=== PATIENT | female | born 1955 | race Caucasian/White ===

== ENCOUNTER 2017-12-01 09:30 | Emergency (ER) | payer BC ==
[2017-12-01 10:07] VITALS: BP 129/74
--- NOTE | 2017-12-01 10:12 | UC ---
Complaint Female HPI - HPI Summary HPI Summary: 61 y/o female presents to the urgent care c/o urinary frequency and urgency x2 days. This morning she woke up w/ burning with urination and mild pelvic pressure. She states she hasn't had a UTI since she got the hysterectomy done many years ago. Pain w/ urination is mild 6/10. Pt has not taking anything to alleviate symptoms. Pt denies fever, flank pain, abdominal pain, lower back pain , N/V/D - History Of Current Complaint Chief Complaint: UCGU Stated Complaint: URINARY COMPLAINT Time Seen by Provider: 12/01/17 10:09 Hx Obtained From: Patient ?: No - menopausal Onset/Duration: Gradual Onset, Lasting Days - 2 days, Still Present, Worse Since - this morning Timing: Intermittent Severity Initially: Mild Severity Currently: Moderate Pain Intensity: 6 Pain Scale Used: 0-10 Numeric Character: Burning Aggravating Factor(s): Urination Alleviating Factor(s): Nothing Associated Signs And Symptoms: Positive: Negative. Negative: Fever, Back Pain, Vaginal Discharge, Genital Swelling, Genital Blisters - Risk Factors Ectopic Risk Factor: Negative Ovarian Torsion Risk Factor: Negative - Allergies/Home Medications Allergies/Adverse Reactions: Allergies Allergy/AdvReac Type Severity Reaction Status Date / Time No Known Allergies Allergy Verified 12/01/17 10:03 PMH/Surg Hx/FS Hx/Imm Hx Previously Healthy: Yes - Pt denies PMHX - Surgical History Surgical History: Yes Surgery Procedure, Year, and Place: hysterectomy. appendectomy. laproscopy - Family History Known Family History: Positive: None - Pt denies FMHX - Social History Occupation: Retired Lives: With Family Alcohol Use: Rare Substance Use Type: None Smoking Status (MU): Heavy Every Day Tobacco Smoker Type: Cigarettes Amount Used/How Often: 1 PPD Review of Systems Constitutional: Negative Skin: Negative Eyes: Negative ENT: Negative Respiratory: Negative Cardiovascular: Negative Gastrointestinal: Negative Genitourinary: Dysuria, Frequency, Urgency Motor: Negative Neurovascular: Negative Musculoskeletal: Negative Neurological: Negative Psychological: Negative Is Patient Immunocompromised?: No All Other Systems Reviewed And Are Negative: Yes Physical Exam - Summary Physical Exam Summary: VITAL SIGNS: Reviewed. GENERAL: Patient is a well developed and nourished female who is sitting comfortable in the examining table. Patient is not in any acute respiratory distress. HEAD AND FACE: No signs of trauma. No ecchymosis, hematomas or skull depressions. No sinus tenderness. EYES: PERRLA, EOMI x 2, No injected conjunctiva, clear watery eyes, no nystagmus. No photophobia. EARS: Hearing grossly intact. Ear canals and tympanic membranes are within normal limits. MOUTH: pharynx with no erythema, no exudates,no palatal petechiae. no B/L tonsillar enlargement Uvula in midline. NECK: Supple, trachea is midline, no lymphadenopathy, no JVD, no carotid bruit, no c-spine tenderness, neck with full ROM. CHEST: Symmetric, no tenderness at palpation LUNGS: Clear to auscultation bilaterally. No wheezing or crackles. CVS: Regular rate and rhythm, S1 and S2 present, no murmurs or gallops appreciated. ABDOMEN: Soft, non-tender. No signs of distention. No rebound no guarding, and no masses palpated. Bowel sounds are normal. BACK:no scoliosis or lesions, non tender to palpation, No B/L CVA tenderness EXTREMITIES: FROM in all major joints, no edema, no cyanosis or clubbing. NEURO: Alert and oriented x 3. No acute neurological deficits. Speech is normal and follows commands. SKIN: Dry and warm Triage Information Reviewed: Yes Vital Signs: Initial Vital Signs Temp 98.7 F 12/01/17 09:58 Pulse 92 12/01/17 09:58 Resp 16 12/01/17 09:58 BP 129/74 12/01/17 09:58 Pulse Ox 100 12/01/17 09:58 Complaint Female Dx - Course Course Of Treatment: 61 y/o female presents to the urgent care c/o urinary frequency and urgency x2 days. This morning she woke up w/ burning with urination and mild pelvic pressure. She states she hasn't had a UTI since she got the hysterectomy done many years ago. Pain w/ urination is mild 6/10. Pt has not taking anything to alleviate symptoms. Pt denies fever, flank pain, abdominal pain, lower back pain, N/V/D. PE: WNL, UA: 2+blood and 3+ leukoesteraces. Pt denies vaginal D/C. Pt w/ dysuria.Pt educated on UA results. Pt Rx Bactrim PO x 3 days and Pyridium 100mg PO TID x 2 days. Advised to increase fluid intake. Urine sent for culture if any abnormality Pt will be notified for further treatment. Pt advised If symptoms do not improve to return to the urgent care or f/u with PCP. Pt understood and agreed. Left the clinic ambulating. - Differential Dx/Diagnosis Differential Diagnosis/HQI/PQRI: Cervicitis, Renal Colic, Ureteral Stone, Urinary Tract Infection Provider Diagnoses: 1- UTI. 2-Dysuria Discharge - Sign-Out/Discharge Documenting (check all that apply): Discharge/Admit/Transfer - D/C home - Discharge Plan Condition: Stable Disposition: HOME Prescriptions: Phenazopyridine TAB* [Pyridium 100 mg TAB*] 100 mg PO TID #6 tab Sulfamethox/Trimethoprim DS* [Bactrim DS 800/160 TAB*] 1 tab PO BID #6 tab Patient Education Materials: Urinary Tract Infection in Women (ED) Referrals: Radha Mcmanus MD [Primary Care Provider] - 3 Days Additional Instructions: 1- Please take Bactrim PO x 3 days. Pyridium 100 mg PO TID x 2 days to alleviate urinary symptoms. Increase increase fluid intake. drink cranberry juice. 2-Urine sent for culture if any abnormality, you will be notified for further treatment. 3-If symptoms do not improve please return to the urgent care or f/u with your PCP. - Billing Disposition and Condition Condition: STABLE Disposition: HOME
--- NOTE | 2017-12-04 07:19 | UC ---
- Progress Note Progress Note: E coli ux cx 12/01/17. + Sens Bactrim ds. Call pt encourage continue Bactrim ds. F/u PCP per routine, or if sx don't resolve. Discharge - Sign-Out/Discharge Documenting (check all that apply): Post-Discharge Follow Up - Discharge Plan Condition: Stable Disposition: HOME Prescriptions: Phenazopyridine TAB* [Pyridium 100 mg TAB*] 100 mg PO TID #6 tab Sulfamethox/Trimethoprim DS* [Bactrim DS 800/160 TAB*] 1 tab PO BID #6 tab Patient Education Materials: Urinary Tract Infection in Women (ED) Referrals: Radha Mcmanus MD [Primary Care Provider] - 3 Days Additional Instructions: 1- Please take Bactrim PO x 3 days. Pyridium 100 mg PO TID x 2 days to alleviate urinary symptoms. Increase increase fluid intake. drink cranberry juice. 2-Urine sent for culture if any abnormality, you will be notified for further treatment. 3-If symptoms do not improve please return to the urgent care or f/u with your PCP. - Billing Disposition and Condition Condition: STABLE Disposition: HOME
== END 2017-12-01 11:02 | disposition home or self-care (01) ==
LOC: UCCORT 09:30
DX: N39.0 Urinary tract infection, site not specified (principal); R30.0 Dysuria; Z90.710 Acquired absence of both cervix and uterus; F17.210 Nicotine dependence, cigarettes, uncomplicated
CPT/HCPCS: 81003; 87077; 87086; 87186; 99212; G0463

== ENCOUNTER 2019-04-10 08:25 | Emergency (ER) | payer BC ==
--- OUTSIDE RECORDS SUMMARY | 2019-04-10 08:33 | XMS REPORT | Continuity of Care Document ---
:1955 External Reference #:[id number] Author Name Radha Mcmanus M.D. 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 Onset: 01/04/2011 Idiopathic urticaria Radha Mcmanus M.D. Onset: 01/04/2011 Lumbar sprain Radha Mcmanus M.D. Onset: 01/04/2011 Hyperlipidemia Radha Mcmanus M.D. Onset: 01/04/2011 Social History Type Date Description Comments Sex Unknown Tobacco Use Start: Unknown Current Cigarette Smoker 1 Pack Daily ETOH Use Occasionally consumes alcohol Tobacco Use Start: Unknown Patient is a current smoker, smokes every day Smoking Status Reviewed: 03/30/17 Patient is a current smoker, smokes every day Allergies, Adverse Reactions, Alerts Active Allergies Reaction Severity Comments Date NKDA 01/04/2011 Nka 05/17/2006 Medications Active Medications SIG Qnty Indications Ordering Provider Date Ropinirole HCL take 1 tablet 240tabs G47.62 Radha Mcmanus M.D. 08/06/2018 1mg by mouth three Tablets times a day if needed Azithromycin 2 by mouth 6tabs R59.0 Radha Mcmanus M.D. 03/30/2017 250mg today, 1 by Tablets mouth day 2 thru 5 Furosemide 1 by mouth 14tabs I87.2 Radha Mcmanus M.D. 12/28/2016 20mg Tablets every day Glucosamine Kasi 2 PO qd Radha Mcmanus M.D. 05/17/2006 Tablets Immunizations CPT Code Status Date Vaccine Lot # [id number] Given 11/25/2016 Zostavax [id number] Given 04/04/2011 Flulaval [id number] Vital Signs Date Vital Result Comment 03/19/2019 1:56pm BP Systolic 110 mmHg BP Diastolic 72 mmHg Heart Rate 89 /min Height 64 inches 5'4" Weight 161.00 lb BMI (Body Mass Index) 27.6 kg/m2 O2 % BldC Oximetry 96 % 03/30/2017 10:04am BP Systolic 120 mmHg BP Diastolic 70 mmHg Height 64 inches 5'4" Results Test Date Facility Test Result H/L Range Note General Health Panel 03/06/2019 [facility] TSH 2.50 mIU/L 0.40-4.50 1, [address] [facility] [address] [place], [place] [id number] [phone] T4,Free 1.0 ng/dL 0.8-1.8 CBC W/ Diff & PLT 03/06/2019 [facility] WBC 5.6 thous/L 3.8-10.[address] [place] [address] [phone] RBC 4.27 mill/L 3.80-5.10 Hemoglobin 13.2 g/dL 11.7-15.5 Hematocrit 39.4 % 35.0-45.0 MCV 92.3 FL 80.0-100.0 MCH 30.9 pg 27.0-33.0 MCHC 33.5 g/dL 32.0-36.0 RDW 12.7 % 11.0-15.0 Platelet Count 192 thous/L 140-400 MPV 11.5 FL 7.5-12.5 Neutrophils,Absolute 3410 cells/L 2900-0608 Bands,Absolute PENDING Metamyelocytes,Absolute PENDING Myelocytes,Absolute PENDING Promyelocytes,Absolute PENDING Lymphocytes,Absolute 1600 cells/L 850-3900 Monocytes,Absolute 480 cells/L 200-950 Eosinophils,Absolute 30 cells/L 15-500 Basophils,Absolute 50 cells/L 0-200 Blast Cells,Absolute PENDING Nucleated RBC,Absolute PENDING Total Neutrophils,% 61.3 % 40-75 Bands,% PENDING Metamyelocytes,% PENDING Myelocytes,% PENDING Promyelocytes,% PENDING Total Lymphocytes,% 28.7 % 12-47 Reactive Lymphocytes PENDING Monocytes,% 8.6 % 4-12 Eosinophils,% 0.5 % 0-4 Basophils,% 0.9 % 0-1 3 Blasts,% PENDING Nucleated RBC PENDING Comment PENDING CMP W/GFR 03/06/2019 [facility] Sodium 139 mmol/L 135-[address] [place] [address] [phone] Potassium 4.5 mmol/L 3.5-5.3 Chloride 106 mmol/L 98-110 Carbon Dioxide 28 mmol/L 20-32 4 Calcium 9.7 mg/dL 8.6-10.4 Alkaline Phosphatase 87 U/L 33-130 Ast 13 U/L 10-35 Alt 8 U/L 6-29 Bilirubin,Total 0.4 mg/dL 0.2-1.2 Glucose 84 mg/dL 65-99 5 Urea Nitrogen (BUN) 15 mg/dL 7-25 Creatinine 0.83 mg/dL 0.50-0.99 6 BUN/Creatinine Ratio 17.7 6-22 Protein,Total 7.1 g/dL 6.1-8.1 Albumin 4.6 g/dL 3.6-5.1 Globulin,Calculated 2.5 g/dL 1.9-3.7 A/G Ratio 1.8 1.0-2.5 Egfr Non-Afr. Vietnamese 75 ML/MIN/1.73M2 > Or = 60 Egfr 87 ML/MIN/1.73M2 > Or = 60 Lipid Panel 03/06/2019 [facility] Cholesterol 240 mg/dL High <199 [address] [facility] [place] [address] [phone] HDL Cholesterol 54 mg/dL >50 Cholesterol/HDL Ratio 4.4 CALC <5.0 LDL Chol,Calculated 164 mg/dL High 0-100 7 Triglycerides 108 mg/dL <150 Non-HDL Cholesterol 186 mg/dL High <130 8 1 FASTING 2 REFERENCE RANGES BELOW ARE APPLICABLE TO FEMALES FIRST TRIMESTER - 0.26 - 2.66 mIU/L SECOND TRIMESTER - 0.55 - 2.73 mIU/L THIRD TRIMESTER - 0.43 - 2.91 mIU/L 3 Relative blood cell counts (%) should be compared with absolute cell counts (cells/mcL). Relative counts may not be clinically meaningful if the absolute count of one or more cell type is decreased. Reference ranges for relative cell counts derived from: A Manual of Laboratory and Diagnostics Tests, 9th Ed, Isaura Jordan & Pompa, 2015. Pediatric Reference Intervals, 7th Ed, [employer], 2011. 4 Reference range for high altitude clients: 18-30 mmol/L 5 GLUCOSE REFERENCE RANGE BASED ON FASTING SPECIMEN. 6 The upper reference limit for Creatinine is approximately 13% higher for people identified as -Vietnamese. 7 LDL-C is now calculated using the Ismael calculation, which is a validated novel method providing better accuracy than the Friedewald equation in the estimation of LDL-C. Rigoberto GALLOWAY et al.BAL.2013;310(19):3620-5581 Desirable range <100 mg/dL for primary prevention; <70 mg/dL for patients with CHD or diabetic patients with >or= 2 CHD risk factors. 8 For patients with diabetes plus 1 major ASCVD risk factor, treating to a non-HDL-C goal of <100 mg/dL (LDL-C of <70 mg/ dL) is considered a therapeutic option. Procedures Date Code Description Status 03/27/2014 671585964 Bone Mineral Density Test Completed 01/17/2012 [id number] Colonoscopy Completed Medical Devices Description No Information Available Encounters Description No Information Available Assessments Date Code Description Provider 03/19/2019 M19.011 Primary osteoarthritis, right shoulder Radha Mcmanus M.D. 03/19/2019 E78.5 Hyperlipidemia, unspecified Radha Mcmanus M.D. 03/19/2019 G47.62 Sleep related leg cramps Radha Mcmanus M.D. Plan of Treatment 03/19/2019 - Radha Mcmanus M.D.M19.011 Primary osteoarthritis, right rqkquihnH35.5 Hyperlipidemia, unspecifiedFollow up:Followup:. (Follow up) Followup:. (Follow up)6 months with lipid fjztkecO48.62 Sleep related leg cramps Functional Status Description No Information Available Mental Status Description No Information Available Referrals Description No Information Available
--- OUTSIDE RECORDS SUMMARY | 2019-04-10 08:33 | XMS REPORT | Continuity of Care Document ---
:1955 External Reference #:[id number] Author Name Radha Mcmanus M.D. 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 [place], [place] [id number] [phone] T4,Free 1.0 ng/dL 0.8-1.8 CBC W/ Diff & PLT 03/06/2019 [facility] WBC 5.6 thous/L 3.8-10.[address] [place] [address] [phone] RBC 4.27 mill/L 3.80-5.10 Hemoglobin 13.2 g/dL 11.7-15.5 Hematocrit 39.4 % 35.0-45.0 MCV 92.3 FL 80.0-100.0 MCH 30.9 pg 27.0-33.0 MCHC 33.5 g/dL 32.0-36.0 RDW 12.7 % 11.0-15.0 Platelet Count 192 thous/L 140-400 MPV 11.5 FL 7.5-12.5 Neutrophils,Absolute 3410 cells/L 8832-6365 Bands,Absolute PENDING Metamyelocytes,Absolute PENDING Myelocytes,Absolute PENDING Promyelocytes,Absolute [...] [facility] Sodium 139 mmol/L 135-[address] [place] [address] [phone] Potassium 4.5 mmol/L 3.5-5.3 Chloride 106 mmol/L [...] 1.9-3.7 A/G Ratio 1.8 1.0-2.5 Egfr Non-Afr. Fijian 75 ML/MIN/1.73M2 > Or = 60 Egfr 87 ML/MIN/1.73M2 > Or = 60 Lipid Panel 03/06/2019 [facility] Cholesterol 240 mg/dL High <199 [address] [facility] [place] [address] [phone] HDL Cholesterol 54 mg/dL >50 Cholesterol/HDL Ratio [...] Pompa, 2015. Pediatric Reference Intervals, 7th Ed, [facility] Press, 2011. 4 Reference range for high altitude clients: 18-30 mmol/L 5 GLUCOSE REFERENCE RANGE BASED ON FASTING SPECIMEN. 6 The upper reference limit for Creatinine is approximately 13% higher for people identified as -Fijian. 7 LDL-C is now calculated using the Rigoberto-Jeannie calculation, which is a validated novel method providing better accuracy than the Friedewald equation in the estimation of LDL-C. Rigoberto GALLOWAY et al.BAL.2013;310(19):5516-9392 Desirable range <100 mg/dL for primary prevention; <70 mg/dL for patients with CHD or diabetic patients with >or= 2 CHD risk factors. 8 For patients with diabetes plus 1 major ASCVD risk factor, treating to a non-HDL-C goal of <100 mg/dL (LDL-C of <70 mg/ dL) is considered a therapeutic option. Procedures Date Code Description Status 03/27/2014 [id number] Bone Mineral Density Test Completed 01/17/2012 [id number] Colonoscopy Completed Medical Devices Description No Information Available Encounters Description No Information Available Assessments Description No Information Available Plan of Treatment No Information Available Functional Status Description No Information Available Mental Status Description No Information Available Referrals Description No Information Available
[2019-04-10 08:36] VITALS: BP 118/70
--- NOTE | 2019-04-10 08:58 | ED ---
GI/ HPI - HPI Summary HPI Summary: 63 yr old female with the complaint of dysuria, frequency of urination, hesitancy. Onset three days, and progressive worse. no NVD. No fever, No back pain. She feels like she has a UTI. - History of Current Complaint Chief Complaint: UCGU Time Seen by Provider: 04/10/19 08:32 Stated Complaint: URINARY Pain Intensity: 9 - Allergy/Home Medications Allergies/Adverse Reactions: Allergies Allergy/AdvReac Type Severity Reaction Status Date / Time No Known Allergies Allergy Verified 04/10/19 08:37 PMH/Surg Hx/FS Hx/Imm Hx - Surgical History Surgery Procedure, Year, and Place: hysterectomy. appendectomy. laproscopy Infectious Disease History: No Infectious Disease History: Denies: Traveled Outside the [place] in Last 30 Days - Family History Known Family History: Positive: None - Pt denies FMHX - Social History Occupation: Employed Full-time Alcohol Use: Rare Substance Use Type: Reports: None Smoking Status (MU): Heavy Every Day Tobacco Smoker Type: Cigarettes Amount Used/How Often: 1 PPD Review of Systems Constitutional: Negative Positive: dysuria, frequency All Other Systems Reviewed And Are Negative: Yes Physical Exam Triage Information Reviewed: Yes Vital Signs On Initial Exam: Initial Vitals Temp Pulse Resp BP Pulse Ox 98.6 F 104 16 118/70 98 04/10/19 08:33 04/10/19 08:33 04/10/19 08:33 04/10/19 08:33 04/10/19 08:33 Vital Signs Reviewed: Yes Appearance: Positive: Well-Appearing, No Pain Distress Skin: Positive: Warm, Skin Color Reflects Adequate Perfusion Head/Face: Positive: Normal Head/Face Inspection Eyes: Positive: EOMI Neck: Positive: Nontender Respiratory/Lung Sounds: Positive: Clear to Auscultation, Breath Sounds Present Cardiovascular: Positive: RRR. Negative: Murmur Abdomen Description: Negative: CVA Tenderness (R), CVA Tenderness (L) Musculoskeletal: Positive: Strength/ROM Intact Neurological: Positive: Sensory/Motor Intact, Alert, Oriented to Person Place, Time, CN Intact II-III, Normal Gait, Speech Normal Psychiatric: Positive: Normal Diagnostics - Vital Signs Vital Signs Temp Pulse Resp BP Pulse Ox 04/10/19 08:33 98.6 F 104 16 118/70 98 - Laboratory Lab Results: Lab Results 04/10/19 Range/Units 08:43 POC Urine Color Yellow POC Urine Clarity Cloudy POC Urine pH 6.5 (5-9) POC Ur Specif [place] 1.015 (1.010-1.030) POC Urine Protein 2+ A (Negative) POC Ur Glucose (UA) Negative (Negative) POC Urine Ketones Negative (Negative) POC Urine Blood 3+ A (Negative) POC Urine Nitrite Negative (Negative) POC Urine Bilirubin Negative (Negative) POC Urine Urobilinogen 0.2 (Negative) POC U Leukocyte Esteras 3+ A (Negative) Lab Statement: Any lab studies that have been ordered have been reviewed, and results considered in the medical decision making process. GIGU Course/Dx - Course Course Of Treatment: 63 yr old with UTI. Rx Bactrim DS. - Diagnoses Provider Diagnoses: UTI (urinary tract infection) Discharge ED - Sign-Out/Discharge Documenting (check all that apply): Patient Departure All imaging exams completed and their final reports reviewed: No Studies - Discharge Plan Condition: Good Disposition: HOME Prescriptions: Sulfamethox/Trimethoprim DS* [Bactrim DS 800/160 TAB*] 1 tab PO BID #14 tab Patient Education Materials: Urinary Tract Infection in Women (ED) Referrals: Radha Mcmanus MD [Primary Care Provider] - 3 Days - Billing Disposition and Condition Condition: GOOD Disposition: Home
== END 2019-04-10 09:02 | disposition home or self-care (01) ==
LOC: UCCORT 08:25
DX: N39.0 Urinary tract infection, site not specified (principal); F17.210 Nicotine dependence, cigarettes, uncomplicated
CPT/HCPCS: 81003; 87077; 87086; 87186; 99212; G0463

== ENCOUNTER 2019-07-06 08:24 | Emergency (ER) | payer BC ==
--- OUTSIDE RECORDS SUMMARY | 2019-07-06 08:32 | XMS REPORT | Continuity of Care Document ---
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 Problems Description No Information Available Social History Type Date Description Comments Sex Unknown Tobacco Use Start: Unknown Heavy tobacco smoker (more than 10 cigarettes/day) ETOH Use Occasionally consumes alcohol Tobacco Use Start: Unknown Heavy tobacco smoker (more than 10 cigarettes/day) Smoking Status Reviewed: 06/11/19 Heavy tobacco smoker (more than 10 cigarettes/day) Exercise Type/Frequency Negative For Does not exercise Allergies, Adverse Reactions, Alerts Description No Known Drug Allergies Medications Active Medications SIG Qnty Indications Ordering Provider Date Amoxicillin/Clavulana take one tablet 20tabs J01.90 Mart 06/11/2019 te Potassium by mouth two MD Hema 875-125mg times a day x 10 Tablets days Ropinirole HCL take 2 tablet by 30tabs David Randolph, 04/19/2018 1mg mouth at bedtime Tablets Glucosamine 1 po qday Unknown 500mg Capsules Tylenol 2 tabs by mouth Unknown 325mg Tablets every 4 hours as needed Ibuprofen 200 400-600mg every 6 Unknown 200mg hours as needed Tablets for pain. Medications Administered in Office Medication SIG Qnty Indications Ordering Provider Date Celestone 3 mg and 3mg David Randolph MD 04/19/2018 Injection Immunizations Description No Information Available Vital Signs Date Vital Result Comment 06/11/2019 4:31pm Heart Rate 88 /min BP Systolic 136 mmHg BP Diastolic 80 mmHg Respiratory Rate 12 /min Body Temperature 97.8 F O2 % BldC Oximetry 98 % 09/26/2018 9:45am Height 64.75 inches 5'4.75" Weight 158.00 lb BP Systolic Sitting 128 mmHg BP Diastolic Sitting 72 mmHg Respiratory Rate 16 /min Pain Level 8 BMI (Body Mass Index) 26.5 kg/m2 Results Description No Information Available Procedures Description No Information Available Medical Devices Description No Information Available Encounters Description No Information Available Assessments Date Code Description Provider 06/11/2019 J01.90 Acute sinusitis, unspecified Elvira Storey PA-C Plan of Treatment 06/11/2019 - MANNY Mcnally-CJ01.90 Acute sinusitis, unspecifiedNew Medication:Amoxicillin/Clavulanate Potassium 875-125 mg - take one tablet by mouth two times a day x 10 daysComments:You should be re-seen by a provider if you develop:Fever higher than 102F (38.9C)Aching all over your bodySudden and severe pain in the face and headTrouble seeing or seeing doubleTrouble thinking clearlySwelling or redness around one or both eyesA stiff neckYou can try an OTC saline nasal spray, Tylenol, Vitamin C & a decongestant Functional Status Description No Information Available Mental Status Description No Information Available Referrals Description No Information Available
[2019-07-06 08:37] VITALS: BP 116/79
--- NOTE | 2019-07-06 08:41 | UC ---
Complaint Female HPI - HPI Summary HPI Summary: Per health support specialist: "Burning at the end of urination. Blood noted in urine early this morning. Symptoms started this midnight." -she was here last month and treated for UTI w/ bactrim (cx was e coli sensitive to the med) x 7 days. sx resolved completely. seh did not f/u with here PCP. UA showed + 3 blood, + LE and + protein, nitrite neg. -has some mild l;eft LBP prior to recent UTI sx. -denies n/v/rash/fevers/chills -has not used pyridium -she noted blood when she wiped today - History Of Current Complaint Chief Complaint: KCUrinarySymptoms Stated Complaint: URINARY COMPLAINT Time Seen by Provider: 07/06/19 08:39 Pain Intensity: 7 - Allergies/Home Medications Allergies/Adverse Reactions: Allergies Allergy/AdvReac Type Severity Reaction Status Date / Time No Known Allergies Allergy Verified 05/07/19 09:42 PMH/Surg Hx/FS Hx/Imm Hx Previously Healthy: Yes - Surgical History Surgical History: Yes Surgery Procedure, Year, and Place: hysterectomy. appendectomy. laproscopy - Family History Known Family History: Positive: Non-Contributory - Social History Alcohol Use: Rare Substance Use Type: None Smoking Status (MU): Heavy Every Day Tobacco Smoker Type: Cigarettes Amount Used/How Often: 1 PPD Review of Systems All Other Systems Reviewed And Are Negative: Yes Constitutional: Positive: Negative. Negative: Fever, Chills, Fatigue Skin: Positive: Negative. Negative: Rash Eyes: Positive: Negative ENT: Positive: Negative Respiratory: Positive: Negative Cardiovascular: Positive: Negative. Negative: Palpitations, Chest Pain Gastrointestinal: Negative: Abdominal Pain, Vomiting, Nausea Genitourinary: Positive: Dysuria, Hematuria, Frequency Motor: Positive: Negative Neurovascular: Positive: Negative Musculoskeletal: Positive: Negative Neurological: Positive: Negative Psychological: Positive: Negative Is Patient Immunocompromised?: No Physical Exam Triage Information Reviewed: Yes Appearance: Well-Appearing, No Pain Distress, Well-Nourished - somewhat of a vague historian. Vital Signs: Initial Vital Signs Temp 97.6 F 07/06/19 08:34 Pulse 82 07/06/19 08:34 Resp 18 07/06/19 08:34 BP 116/79 07/06/19 08:34 Pulse Ox 99 07/06/19 08:34 Vital Signs Reviewed: Yes Eye Exam: Normal ENT Exam: Normal ENT: Positive: Pharynx normal. Negative: Nasal congestion, Nasal drainage Neck exam: Normal Respiratory Exam: Normal Respiratory: Positive: Chest non-tender, Lungs clear, Normal breath sounds, No respiratory distress, No accessory muscle use. Negative: Crackles, Rhonchi, Stridor, Wheezing Cardiovascular Exam: Normal Cardiovascular: Positive: RRR, No Murmur, Pulses Normal Abdomen Description: Positive: Soft, Other: - mild suprapubic tenderness centrally.. Negative: CVA Tenderness (R), CVA Tenderness (L), Distended, Guarding, Hepatomegaly, Splenomegaly Musculoskeletal Exam: Normal Neurological Exam: Normal Psychological Exam: Normal Skin Exam: Normal Complaint Female Dx - Course Course Of Treatment: UA + # blood - same in Apr with same sx. stressed importance of f/u to be sure blood is not from ca or kidney stone, jennifer in light of recent left low back pain. she is very agreeable and understands me well. - Differential Dx/Diagnosis Differential Diagnosis/HQI/PQRI: Renal Colic, Urinary Tract Infection, Other - hematuria Provider Diagnosis: Hematuria, UTI (urinary tract infection) Discharge ED - Sign-Out/Discharge Documenting (check all that apply): Patient Departure All imaging exams completed and their final reports reviewed: No Studies - Discharge Plan Condition: Stable Disposition: HOME Prescriptions: Cephalexin CAP* [Keflex CAP*] 500 mg PO TID #30 cap Patient Education Materials: Urinary Tract Infection in Women (ED) Referrals: Radha cMmanus MD [Primary Care Provider] - 2 Weeks Additional Instructions: -It is recommended that you take a probiotic daily while you are on antibiotics. A few common brands that you can buy over the counter are colon health, align and florastor. These can help prevent a colon infection called c diff that can be associated with antibiotic use. -Please make sure to follow up in 7-10 days to recheck the urine and be certain that the blood has cleared as it could be a sign of other serious conditions including kidney stones or cancer. It could also be from the UTI, however, it is important to be sure that it clears as the infection clears. There was blood in the urine sample in the prior sample in April as well. - Billing Disposition and Condition Condition: STABLE Disposition: Home
== END 2019-07-06 09:19 | disposition home or self-care (01) ==
LOC: UCCORT 08:24
DX: N39.0 Urinary tract infection, site not specified (principal); R31.9 Hematuria, unspecified; F17.210 Nicotine dependence, cigarettes, uncomplicated
CPT/HCPCS: 81003; 87086; 99212; G0463

== ENCOUNTER 2021-12-17 10:33 | Observation (INO) ==
[2021-12-17] MEDS ORDERED: Morphine 4 MG/ML VIAL (1 ml) IV ONE ×2 (11:10→13:49)
[2021-12-17] MEDS ORDERED: Lactated Ringers 1000 ml BAG 1,000 ML IV ONE (11:10)
[2021-12-17 11:30] LABS: ABS Lymphocytes 1.7 10^3/ul (1.0-4.8); ABS Monocytes 0.4 10^3/ul (0-0.8); ABS Neutrophils 3.7 10^3/ul (1.5-7.7); Eosinophil % 0.4 %; Hematocrit 37 % (35-47); Hemoglobin 12.3 g/dL (12.0-16.0); Lymphocyte % 28.7 %; Mean Corpuscular HGB Conc 33 g/dL (31-36); Mean Corpuscular Hemoglobin 31 pg (27-31); Mean Corpuscular Volume 93 fL (80-97); Mean Platelet Volume 8.6 fL (7.4-10.4); Nucleated Red Blood Cells % 0.1; Platelet Count 179 10^3/uL (150-450); Red Blood Count 3.99 10^6 /uL (3.70-4.87); Red Cell Distribution Width 13 % (10-15); White Blood Count 5.8 10^3/uL (3.5-10.8)
[2021-12-17 11:38] LABS: Activated Partial Thrombo Time 30.6 seconds (26.0-38.0); INR 1.1 (0.86-1.15)
[2021-12-17 12:11] LABS: ALT 9 U/L (7-52); AST 14 U/L (13-39); Albumin/Globulin Ratio 1.8 (1-3); Alkaline Phosphatase 64 U/L (35-149); Anion Gap 7 mmol/L (2-11); Blood Urea Nitrogen 8 mg/dL (6-24); C Reactive Protein < 1.00 mg/L (<8.01); CO2 Carbon Dioxide 25 mmol/L (22-32); Calcium 8.6 mg/dL (8.6-10.3); Chloride 107 mmol/L (101-111); Globulin 2.2 g/dL (2-4); Glucose 89 mg/dL (70-100); Potassium 3.9 mmol/L (3.5-5.0); Sodium 139 mmol/L (135-145); Total Protein 6.2 g/dL (6.4-8.9); eGFR CKD-EPI 99.7 (>60)
[2021-12-17] MEDS ORDERED: Piperacillin/Tazobac ADVAN 3.375 GM in NS 0.9% 100 ml BAG 100 ML IV ONE (13:59)
[2021-12-17] MEDS ORDERED: Ondansetron 4 mg VIAL 2 MG/ML 2 ml VIAL IV PRN (16:24)
[2021-12-17] MEDS ORDERED: Nicotine GUM 2MG FRUIT FLAVOR PO PRN (16:53)
[2021-12-17] MEDS ORDERED: Lactated Ringers 1000 ml BAG 1,000 ML IV SCH (17:00)
[2021-12-17] MEDS ORDERED: Nicotine PATCH 14 MG/24 HR PATCH TRANSDERM ONE (17:30)
[2021-12-17] MEDS ORDERED: Zosyn per Pharmacy NOTE FOLLOW UP SCH (18:00)
[2021-12-17] MEDS ORDERED: Acetaminophen IV 1 GM/100ML 100 ML IV PRN (18:02)
[2021-12-17 19:11] LABS: High Sensitivity Troponin 1 Hr 5 pg/mL (<15)
[2021-12-17 20:21] LABS: Hematocrit 34 % (35-47); Hemoglobin 11.4 g/dL (12.0-16.0)
[2021-12-17] MEDS ORDERED: NS 0.9% 1000 ml BAG 1,000 ML IV SCH (21:00)
[2021-12-17] MEDS: ZOSYN 3.375 GM Q8H per EXTENDED INFUSION IV SCH (21:51)
[2021-12-18 01:06] LABS: Hematocrit 33 % (35-47); Hemoglobin 10.8 g/dL (12.0-16.0)
[2021-12-18] MEDS: ZOSYN 3.375 GM Q8H per EXTENDED INFUSION IV SCH (04:03)
[2021-12-18 05:15] LABS: Hematocrit 34 % (35-47); Hemoglobin 11.3 g/dL (12.0-16.0)
[2021-12-18 05:30] LABS: Hematocrit 34 % (35-47); Hemoglobin 11.1 g/dL (12.0-16.0); Mean Corpuscular HGB Conc 33 g/dL (31-36); Mean Corpuscular Hemoglobin 31 pg (27-31); Mean Corpuscular Volume 93 fL (80-97); Mean Platelet Volume 9.3 fL (7.4-10.4); Platelet Count 153 10^3/uL (150-450); Red Blood Count 3.63 10^6 /uL (3.70-4.87); Red Cell Distribution Width 13 % (10-15); White Blood Count 4.6 10^3/uL (3.5-10.8)
[2021-12-18 05:57] LABS: Calcium 8.1 mg/dL (8.6-10.3)
[2021-12-18 08:10] VITALS: BP 131/61
[2021-12-18 08:37] LABS: Hematocrit 34 % (35-47); Hemoglobin 11.3 g/dL (12.0-16.0)
[2021-12-18] MEDS ORDERED: Nicotine PATCH 14 MG/24 HR PATCH TRANSDERM SCH (09:00)
== END 2021-12-18 10:30 | disposition home or self-care (01) ==
LOC: ED 10:33 → EDHOLD 10:33 → MED 19:27
PROVIDERS: ADMIT Internal Medicine; ATTEND Internal Medicine